=== PATIENT | male | born 1930 | race Caucasian/White ===

== ENCOUNTER → 2017-02-20 | Outpatient (CLI) | payer OTHER ==
[~2017-02-20] MED LIST: ALBUAER INH; ARTIFICAL TEARS OPB; ASPEC81 PO; ASPI81TA28 PO; CHOL1000 PO; CHOL1TAB76 PO; DILT-113 PO; DIPH-416 PO; FLUT0.15 NAE; IRON PO; LOPE1CAP6 PO; LOSA50TA6 PO; LOVA20TA4 PO; NAPR1TAB9 PO; PRLSR20 PO
--- NOTE | 2017-02-20 12:27 | DIAGNOSTIC IMAGING REPORT ---
CHEST 2 VIEWS ROUTINE CLINICAL HISTORY: WHEEZING COMPARISON STUDY: 01/20/2014 FINDINGS: The cardiac and mediastinal contours remain stable. There is no lobar consolidation. There is developing subtle basilar interstitial thickening. There are no pleural effusions. There is no failure.[ IMPRESSION: Developing mild subtle basilar interstitial thickening. No evidence of lobar consolidation. No evidence of failure. Electronically signed by: Zechariah Singh M.D. 02/20/2017 12:26 PM Dictated Date/Time: 02/20/2017 12:24 PM
== END | disposition home or self-care (01) ==
LOC: C.RAD 12:03
PROVIDERS: ATTEND Physician Assistant
DX: R06.2 Wheezing (principal)

== ENCOUNTER → 2017-03-13 | Outpatient (CLI) | payer OTHER ==
--- NOTE | 2017-03-13 13:51 | DIAGNOSTIC IMAGING REPORT ---
TWO VIEW CHEST CLINICAL HISTORY: Follow-up abnormal chest x-ray. FINDINGS: PA and lateral chest radiographs are compared to study dated 02/20/2017. The heart is mildly enlarged and there is atherosclerotic calcification of the thoracic aorta. The pulmonary vasculature is noncongested. Chronic interstitial thickening is similar to previous. There is mild bibasilar atelectasis. No airspace consolidation is seen typical for pneumonia and there is no pleural effusion. There is no pneumothorax. The skeletal structures are osteopenic. The bony thorax appears intact. IMPRESSION: Mild cardiac enlargement with no active disease in the chest. There is improved aeration at the lung bases as compared to previous Electronically signed by: Jcarlos Whitlock M.D. 03/13/2017 1:49 PM Dictated Date/Time: 03/13/2017 1:48 PM
== END | disposition home or self-care (01) ==
LOC: C.RAD 13:12
PROVIDERS: ATTEND Physician Assistant
DX: R91.8 Other nonspecific abnormal finding of lung field (principal)

== ENCOUNTER → 2017-06-29 | Outpatient (CLI) | payer OTHER ==
--- NOTE | 2017-06-29 10:07 | DIAGNOSTIC IMAGING REPORT ---
ULTRASOUND EXAM AAA SCREEN CLINICAL HISTORY: ATHEROSCLEROSIS OF AORTA atherosclerotic change TECHNIQUE: Ultrasound COMPARISON STUDY: None FINDINGS: Mild atherosclerotic change and ectasia of the abdominal aorta. No evidence for well-defined aneurysm. IMPRESSION: Mild atherosclerotic change and ectasia of the abdominal and pelvic iliac arterial vasculature. No evidence for aneurysm The above report was generated using voice recognition software. It may contain grammatical, syntax or spelling errors. Electronically signed by: Sidney Jerome M.D. 06/29/2017 10:05 AM Dictated Date/Time: 06/29/2017 10:04 AM
== END | disposition home or self-care (01) ==
LOC: C.ULTR 09:19
PROVIDERS: ATTEND Physician Assistant
DX: I70.0 Atherosclerosis of aorta (principal)

== ENCOUNTER → 2017-07-12 | Day surgery (SDC) | payer OTHER ==
[2017-07-10 14:18] VITALS: BMI 27.0
[~2017-07-12] VITALS: Ht 167.6 cm; Wt 77.3 kg
[~2017-07-12] MED LIST changes: -ARTIFICAL TEARS OPB; -ASPEC81 PO; -CHOL1000 PO; -DIPH-416 PO; -IRON PO; +PROPOFOL IV EMULSION 10 MG/ML 20 ML VIAL IV ONE; +SODIUM CHLORIDE 0.9% 500ML 500 ML IV ONE
[2017-07-12 09:33] VITALS: Ht 167.6 cm; Wt 77.3 kg
--- NOTE | 2017-07-12 09:34 | Endo History and Physical ---
History & Physical Date of Service: Jul 12, 2017. Chief Complaint: Chronic Anemia Referring Physician: Kimber Miller History of Present Illness 86 yo CM who presents for Colonoscopy secondary to chronic anemia. Past Medical History Gastrointestinal Disorder, Reflux, Cancer, High Cholesterol, Hypertension Past Surgical History Hx Cardiac Surgery: No Hx Internal Defibrillator: No Hx Pacemaker: No Hx Abdominal Surgery: Yes (RT INGUINAL HERNIA REPAIR) Hx of Implantable Prosthesis: No Hx Post-Op Nausea and Vomiting: No Hx Cancer Surgery: Yes (RT HEMICOLONECTOMY) Hx Thoracic Surgery: No Hx Orthopedic: No Hx Urinary Tract Surgery: No Family History IBD Social History Smoking Status: Former Smoker Hx Substance Use: No Hx Alcohol Use: Yes (OCCASIONAL) Allergies Coded Allergies: Penicillins (Verified Allergy, Unknown, THROAT SWELLS,REDNESS, 07/12/17) Current Medications Reported Home Medications Medications Dose Route/Sig Max Daily Dose Days Date Category Aleve (Naproxen) 220 Mg Tab 220 Mg PO DAILY PRN 07/10/17 Reported Anti-Diarrheal (Loperamide Hcl) 2 Mg Cap 1 Cap PO UD PRN 07/10/17 Reported Proventil Hfa (Albuterol Sulfate) 108 Mcg/Act Aer 2 Puffs INH Q4H PRN 07/10/17 Reported Aspirin Ec (Aspirin) 81 Mg Tab 81 Mg PO QAM 07/10/17 Reported D 2000 (Cholecalciferol) 2,000 Unit Tab 1 Tab PO QAM 07/10/17 Reported Flonase Allergy Relief (Fluticasone Propionate (Nasal)) 50 Mcg/Act Spr 1 [place] YVON DAILY PRN 09/11/15 Reported Cozaar (Losartan Potassium) 50 Mg Tab 50 Mg PO HS 09/11/15 Reported Prilosec (Omeprazole) 20 Mg Capcr 20 Mg PO HS 09/11/15 Reported Tiazac (Diltiazem HCl) 180 Mg Capcr 180 Mg PO QAM 09/11/15 Reported Mevacor (Lovastatin) 20 Mg Tab 20 Mg PO HS 05/06/10 Reported Vital Signs Weight (Kilograms): 77.27 Height (Feet): 5 Height (Inches): 6 Physical Exam General Appearance: WD/WN, no apparent distress Respiratory/Chest: Auscultation: breath sounds normal Cardiovascular: Heart Auscultation: RRR Abdomen: Bowel Sounds: normal Inspection & Palpation: soft, non-distended, no tenderness, guarding & rebound Assessment and Plan Assessment: 86 yo CM who presents for Colonoscopy secondary to chronic anemia. Plan: Proceed with colonoscopy.
--- NOTE | 2017-07-12 10:21 | Discharge Instructions ---
Endoscopy Patient Instructions Date / Procedure(s) Performed Jul 12, 2017. Colonoscopy Allergy Information Coded Allergies: Penicillins (Verified Allergy, Unknown, THROAT SWELLS,REDNESS, 07/12/17) Discharge Date / Findings Jul 12, 2017. Normal Right colon anastomosis Colon polyp Diverticulosis Internal hemorrhoids Medication Instructions OK to resume all medications today as prescribed Reported Home Medications Medications Dose Route/Sig Max Daily Dose Days Date Category Aleve (Naproxen) 220 Mg Tab 220 Mg PO DAILY PRN 07/10/17 Reported Anti-Diarrheal (Loperamide Hcl) 2 Mg Cap 1 Cap PO UD PRN 07/10/17 Reported Proventil Hfa (Albuterol Sulfate) 108 Mcg/Act Aer 2 Puffs INH Q4H PRN 07/10/17 Reported Aspirin Ec (Aspirin) 81 Mg Tab 81 Mg PO QAM 07/10/17 Reported D 2000 (Cholecalciferol) 2,000 Unit Tab 1 Tab PO QAM 07/10/17 Reported Flonase Allergy Relief (Fluticasone Propionate (Nasal)) 50 Mcg/Act Spr 1 [place] YVON DAILY PRN 09/11/15 Reported Cozaar (Losartan Potassium) 50 Mg Tab 50 Mg PO HS 09/11/15 Reported Prilosec (Omeprazole) 20 Mg Capcr 20 Mg PO HS 09/11/15 Reported Tiazac (Diltiazem HCl) 180 Mg Capcr 180 Mg PO QAM 09/11/15 Reported Mevacor (Lovastatin) 20 Mg Tab 20 Mg PO HS 05/06/10 Reported Provider Instructions Activity Restrictions - No exercising or heavy lifting for 24 hours. - Do not drink alcohol the day of the procedure. - Do not drive a car or operate machinery until the day after the procedure. - Do not make any important decisions or sign important papers in 24 hours after the procedure. Following Day: - Return to full activity which may include returning to work/school. Diet Start your diet with liquids and light foods (jello, soup, juice, toast). Then eat your usual diet if not nauseated. Treatment For Common After Affects For mild abdominal pain, bloating, or excessive gas: - Rest - Eat lightly - Lie on right side Follow-Up Information Follow-up with Kimbre Miller PA-C as scheduled Anesthesia Information What You Should Know You have had a procedure that required some medicine to reduce anxiety and discomfort. This treatment is called moderate sedation. After receiving the treatment, you may be sleepy, but you will be able to breathe on your own. The effects of the treatment may last for several hours. Follow these instructions along with Activity/Diet recommendations noted above: * Do NOT do anything where dizziness or clumsiness would be dangerous. * Rest quietly at home today, then you can be up and about tomorrow. * Have a responsible person stay with you the rest of today. * You may have had an I.V. today. If so, you may take the dressing off later today. Recommendations Call your doctor if: * Trouble breathing * Continuous vomiting for more than 24 hours * Temperature above 101 degrees * Severe abdominal pain or bloating * Pain not relieved by pain medicine ordered * There is increased drainage or redness from any incision * A large amount of rectal bleeding greater than 2-3 tablespoons. (If you had a polyp/s removed or have hemorrhoids, a small amount of blood - from the rectum is to be expected.) * You have any unanswered questions or concerns. IN THE EVENT OF A SERIOUS EMERGENCY, GO TO THE NEAREST EMERGENCY ROOM Your discharge instructions were prepared by provider Pk Yancey. Patient Instructions Signature Page Max Rain Patient (or Guardian) Signature/Date: I have read and understand the instructions given to me by my caregivers. Caregiver/RN/Doctor Signature/Date: The above-named patient and/or guardian has received patient instructions on this date. + Original Patient Signature Page (only) stays with chart. Please make copy for patient.
--- NOTE | 2017-07-12 10:25 | GI REPORT ---
Procedure Date: 07/12/2017 9:42 AM Procedure: Colonoscopy Indications: Unexplained iron deficiency anemia Medicines: Monitored Anesthesia Care Complications: No immediate complications. Estimated Blood Loss: Estimated blood loss: none. Procedure: Pre-Anesthesia Assessment: - Prior to the procedure, a History and Physical was performed, and patient medications and allergies were reviewed. The patient's tolerance of previous anesthesia was also reviewed. The risks and benefits of the procedure and the sedation options and risks were discussed with the patient. All questions were answered, and informed consent was obtained. Prior Anticoagulants: The patient has taken aspirin, last dose was 1 day prior to procedure. ASA Grade Assessment: II - A patient with mild systemic disease. After reviewing the risks and benefits, the patient was deemed in satisfactory condition to undergo the procedure. After I obtained informed consent, the scope was passed under direct vision. Throughout the procedure, the patient's blood pressure, pulse, and oxygen saturations were monitored continuously. The Scope was introduced through the anus and advanced to the ileocolonic anastomosis. The colonoscopy was performed without difficulty. The patient tolerated the procedure well. The quality of the bowel preparation was good. The terminal ileum and the rectum were photographed. Findings: There was evidence of a prior end-to-side ileo-colonic anastomosis in the ascending colon. This was patent and was characterized by healthy appearing mucosa. The anastomosis was traversed. Scattered small-mouthed diverticula were found in the entire colon. A 5 mm polyp was found in the sigmoid colon. The polyp was sessile. The polyp was removed with a hot snare. Resection and retrieval were complete. Non-bleeding internal hemorrhoids were found during retroflexion. The hemorrhoids were small. Impression: - Patent end-to-side ileo-colonic anastomosis, characterized by healthy appearing mucosa. - Diverticulosis in the entire examined colon. - One 5 mm polyp in the sigmoid colon, removed with a hot snare. Resected and retrieved. - Non-bleeding internal hemorrhoids. Recommendation: - Resume previous diet. - Continue present medications. - Repeat colonoscopy for surveillance based on pathology results. - Return to primary care physician as previously scheduled. Pk Yancey DO 07/12/2017 10:25:30 AM This report has been signed electronically. Note Initiated On: 07/12/2017 9:42 AM I attest to the content of the Intraoperative Record and orders documented therein, exceptions below
--- NOTE | 2017-07-12 10:33 | Anesthesiology Progress Note ---
Anesthesia Post Op Note Date & Time Jul 12, 2017 at 10:33 Vital Signs Pain Intensity: 0 Vital Signs Past 12 Hours Date Time Temp Pulse Resp B/P (MAP) Pulse Ox O2 Delivery O2 Flow Rate FiO2 07/12/17 10:23 116/50 (72) 07/12/17 10:21 60 16 109/54 (72) 95 Room Air 07/12/17 09:47 36.4 68 18 174/77 (109) 96 Room Air Notes Mental Status: alert / awake / arousable, participated in evaluation Pt Amnestic to Procedure: Yes Nausea / Vomiting: adequately controlled Pain: adequately controlled Airway Patency, RR, SpO2: stable & adequate BP & HR: stable & adequate Hydration State: stable & adequate Anesthetic Complications: no major complications apparent
[2017-07-12 10:51] VITALS: BP 152/75; PULSE 58; O2SAT 95
== END | disposition home or self-care (01) ==
LOC: C.GI 08:58
PROVIDERS: ATTEND Internal Medicine
DX: D50.9 Iron deficiency anemia, unspecified (principal); D12.5 Benign neoplasm of sigmoid colon; I10 Essential (primary) hypertension; K21.9 Gastro-esophageal reflux disease without esophagitis; K64.8 Other hemorrhoids; K57.30 Diverticulosis of large intestine without perforation or abscess without bleeding; Z90.49 Acquired absence of other specified parts of digestive tract; Z87.891 Personal history of nicotine dependence